=== PATIENT | male | born 1960 | race Caucasian/White ===

== ENCOUNTER 2022-03-06 18:27 | Emergency (ER) | payer OTHER ==
[2022-03-06 18:54] LABS: BASOPHIL 0.8 % (0-2); EOSINOPHIL 2.8 % (0-5); HCT 39.4 % (42.0-52.0); HGB 13.1 g/dl (13.2-18.0); LYMPHOCYTE 28.5 % (15-48); MCH 30.4 pg (25.0-31.0); MCHC 33.2 g/dL (32.0-36.0); MCV 91.4 fL (78.0-100.0); MONOCYTE 8.6 % (0-12); MPV 9.4 fL (6.0-9.5); NEUTROPHIL 58.8 % (41-80); NRBC 0; PLT 249 K/uL (150-400); RBC 4.31 M/uL (4.70-6.00); RDW 13.5 % (11.5-14.0); WBC 6.4 K/uL (4.0-10.5)
[2022-03-06 19:03] LABS: INR 1.2 (0.9-1.2); PROTHROMBIN TIME 14.6 SECONDS (11.8-13.4); PTT 31.5 SECONDS (24.4-34.7)
[2022-03-06 19:12] LABS: ALBUMIN 3.8 g/dL (3.4-5.0); BILIRUBIN - TOTAL 0.4 mg/dL (0.2-1.0); BUN/CREAT RATIO (CALC) 11.8 RATIO; CREATININE 1.19 mg/dL (0.67-1.17); GLOBULIN (CALCULATION) 3.6 g/dL; TOTAL PROTEIN 7.4 g/dL (6.4-8.2)
== END 2022-03-06 21:40 | disposition home or self-care (01) ==
LOC: FER 18:27
PROVIDERS: Emergency Medicine
DX: R07.89 Other chest pain (principal); I44.0 Atrioventricular block, first degree; I48.91 Unspecified atrial fibrillation; Z28.310 Unvaccinated for COVID-19; Z79.01 Long term (current) use of anticoagulants
CPT/HCPCS: 36415; 71045; 80053; 84484; 85025; 85610; 85730; 93005